=== PATIENT | male | born 1945 | race Caucasian/White ===

== ENCOUNTER 2022-01-27 11:57 | Inpatient (IN) ==
[2022-01-27 13:25] LABS: ABS Basophils 0.1 10^3/ul (0-0.2); ABS Lymphocytes 0.8 10^3/ul (1.0-4.8); ABS Monocytes 0.6 10^3/ul (0-0.8); ABS Neutrophils 12.9 10^3/ul (1.5-7.7); Eosinophil % 0.2 %; Hematocrit 25 % (42-52); Hemoglobin 8.7 g/dL (14.0-18.0); Lymphocyte % 5.5 %; Mean Corpuscular HGB Conc 34 g/dL (31-36); Mean Corpuscular Hemoglobin 31 pg (27-31); Mean Corpuscular Volume 89 fL (80-94); Mean Platelet Volume 6.5 fL (7.4-10.4); Platelet Count 213 10^3/uL (150-450); Red Blood Count 2.85 10^6 /uL (4.18-5.48); Red Cell Distribution Width 15 % (10-15); White Blood Count 14.4 10^3/uL (3.5-10.8)
[2022-01-27 13:42] LABS: ALT 153 U/L (7-52); AST 160 U/L (13-39); Albumin 3.3 g/dL (3.2-5.2); Albumin/Globulin Ratio 1.4 (1-3); Alkaline Phosphatase 73 U/L (35-149); Anion Gap 16 mmol/L (2-11); Blood Urea Nitrogen 117 mg/dL (6-24); CO2 Carbon Dioxide 19 mmol/L (22-32); Calcium 8.3 mg/dL (8.6-10.3); Chloride 93 mmol/L (101-111); Globulin 2.3 g/dL (2-4); Glucose 146 mg/dL (70-100); Lipase 48 U/L (11.0-82.0); Magnesium 2.6 mg/dL (1.9-2.7); Potassium 3.7 mmol/L (3.5-5.0); Sodium 128 mmol/L (135-145); Total Protein 5.6 g/dL (6.4-8.9); eGFR CKD-EPI 8.8 (>60)
[2022-01-27 13:43] LABS: High Sens Troponin Baseline 223 pg/mL (<20)
[2022-01-27 14:15] LABS: Creatine Kinase 6143 U/L (10-223)
[2022-01-27] MEDS ORDERED: Lactated Ringers 1000 ml BAG 1,000 ML IV ONE (14:27)
[2022-01-27 14:52] LABS: High Sensitivity Troponin 1 Hr 360 pg/mL (<20)
[2022-01-27] MEDS ORDERED: Lactated Ringers 1000 ml BAG 1,000 ML IV SCH (15:00)
[2022-01-27 15:15] LABS: PCO2 Arterial 29 mmHg (35-45); PO2 Arterial 100 mmHg (80-100)
[2022-01-27 15:20] LABS: Alcohol, S < 13 mg/dL (<13)
[2022-01-27 16:05] LABS: Urine Appearance Cloudy; Urine Bacteria 1+ (Absent); Urine Bilirubin Negative (Negative); Urine Blood 3+ (Negative); Urine Color Yellow; Urine Glucose Negative (Negative); Urine Ketones Negative (Negative); Urine Nitrite Negative (Negative); Urine Protein 1+(30 mg/dL) (Negative); Urine Red Blood Cell Trace(0-2/hpf) (Absent); Urine Urobilinogen Negative (Negative); Urine White Blood Cell Trace(0-5/hpf) (Absent); Urine Yeast Present (Absent)
[2022-01-27 16:05] LABS: Salicylate < 2.50 mg/dL (<30)
[2022-01-27] MEDS ORDERED: Ondansetron 4 mg VIAL 2 MG/ML 2 ml VIAL IV ONE (16:21)
[2022-01-27] MEDS ORDERED: Ondansetron 4 mg VIAL 2 MG/ML 2 ml VIAL IV PRN (16:21)
[2022-01-27] MEDS ORDERED: Ondansetron 4 mg VIAL 2 MG/ML 2 ml VIAL ONE (16:22)
[2022-01-27 17:23] LABS: CKMB ng/mL 150.8 ng/mL (0.6-6.3); Potassium 3.6 mmol/L (3.5-5.0); eGFR CKD-EPI 9.1 (>60)
[2022-01-27 17:29] LABS: ABS Lymphocytes 0.7 10^3/ul (1.0-4.8); ABS Monocytes 0.6 10^3/ul (0-0.8); ABS Neutrophils 11.1 10^3/ul (1.5-7.7); ABS Nucleated RBC 0.1 10^3/ul; Eosinophil % 0.1 %; Hematocrit 19 % (42-52); Hemoglobin 6.6 g/dL (14.0-18.0); Lymphocyte % 5.7 %; Mean Corpuscular HGB Conc 35 g/dL (31-36); Mean Corpuscular Hemoglobin 31 pg (27-31); Mean Corpuscular Volume 89 fL (80-94); Mean Platelet Volume 6.6 fL (7.4-10.4); Nucleated Red Blood Cells % 0.4; Platelet Count 165 10^3/uL (150-450); Red Blood Count 2.14 10^6 /uL (4.18-5.48); Red Cell Distribution Width 15 % (10-15); White Blood Count 12.5 10^3/uL (3.5-10.8)
[2022-01-27 17:51] LABS: Hepatitis A Ab IgM Negative (Negative)
[2022-01-27 17:52] LABS: Hepatitis B Core IgM Nonreactive (Nonreactive)
[2022-01-27] MEDS: cefTRIAXone 1 gm/50 mL D5W 1 GM/50 ML BAG IV SCH (17:59)
[2022-01-27 18:04] LABS: Hepatitis C Antibody Negative (Negative)
[2022-01-27 18:33] LABS: Hematocrit 20 % (42-52); Hemoglobin 7.1 g/dL (14.0-18.0)
[2022-01-27 19:48] LABS: Calcium 7.6 mg/dL (8.6-10.3); Potassium 3.4 mmol/L (3.5-5.0); eGFR CKD-EPI 9.3 (>60)
[2022-01-27] MEDS: Pantoprazole VIAL 40 MG VIAL IV SCH (20:28)
[2022-01-27] MEDS: Lactated Ringers 1000 ml BAG 1,000 ML IV SCH (20:30)
[2022-01-27 20:42] LABS: Hepatitis B Surface Antigen Nonreactive (Nonreactive)
[2022-01-28 00:18] LABS: Calcium 7.8 mg/dL (8.6-10.3); Potassium 3.6 mmol/L (3.5-5.0)
[2022-01-28 04:19] LABS: ABS Basophils 0.1 10^3/ul (0-0.2); ABS Eosinophils 0.1 10^3/ul (0-0.6); ABS Lymphocytes 1.1 10^3/ul (1.0-4.8); ABS Monocytes 0.4 10^3/ul (0-0.8); ABS Neutrophils 9.3 10^3/ul (1.5-7.7); Eosinophil % 0.8 %; Hematocrit 23 % (42-52); Hemoglobin 7.9 g/dL (14.0-18.0); Lymphocyte % 10.1 %; Mean Corpuscular HGB Conc 35 g/dL (31-36); Mean Corpuscular Hemoglobin 31 pg (27-31); Mean Corpuscular Volume 88 fL (80-94); Mean Platelet Volume 6.6 fL (7.4-10.4); Nucleated Red Blood Cells % 0.1; Platelet Count 164 10^3/uL (150-450); Red Blood Count 2.57 10^6 /uL (4.18-5.48); Red Cell Distribution Width 14 % (10-15); White Blood Count 10.9 10^3/uL (3.5-10.8)
[2022-01-28 04:22] LABS: INR 1.09 (0.86-1.15)
[2022-01-28] MEDS: Lactated Ringers 1000 ml BAG 1,000 ML IV SCH (04:46)
[2022-01-28 04:56] LABS: Albumin 2.5 g/dL (3.2-5.2); Albumin/Globulin Ratio 1.4 (1-3); Calcium 7.8 mg/dL (8.6-10.3); Globulin 1.8 g/dL (2-4); Potassium 3.5 mmol/L (3.5-5.0); Total Bilirubin 0.5 mg/dL (0.2-1.0); Total Protein 4.3 g/dL (6.4-8.9); eGFR CKD-EPI 9.1 (>60)
[2022-01-28] MEDS: Pantoprazole VIAL 40 MG VIAL IV SCH ×2 (10:39→21:11)
[2022-01-28] MEDS ORDERED: Perflutren Lipid Microsphere 3 ML VIAL ONE (11:01)
[2022-01-28] MEDS: cefTRIAXone 1 gm/50 mL D5W 1 GM/50 ML BAG IV SCH (17:43)
[2022-01-29 06:40] LABS: ABS Eosinophils 0.1 10^3/ul (0-0.6); ABS Lymphocytes 1.2 10^3/ul (1.0-4.8); ABS Monocytes 0.7 10^3/ul (0-0.8); ABS Neutrophils 8.2 10^3/ul (1.5-7.7); Eosinophil % 1.2 %; Hematocrit 25 % (42-52); Hemoglobin 8.6 g/dL (14.0-18.0); Lymphocyte % 11.5 %; Mean Corpuscular HGB Conc 35 g/dL (31-36); Mean Corpuscular Hemoglobin 31 pg (27-31); Mean Corpuscular Volume 89 fL (80-94); Mean Platelet Volume 6.4 fL (7.4-10.4); Platelet Count 157 10^3/uL (150-450); Red Blood Count 2.77 10^6 /uL (4.18-5.48); Red Cell Distribution Width 15 % (10-15); White Blood Count 10.2 10^3/uL (3.5-10.8)
[2022-01-29 07:00] LABS: Albumin 2.8 g/dL (3.2-5.2); Albumin/Globulin Ratio 1.3 (1-3); Calcium 8.3 mg/dL (8.6-10.3); Globulin 2.2 g/dL (2-4); Magnesium 2.3 mg/dL (1.9-2.7); Phosphorus 6.9 mg/dL (2.5-5.0); Potassium 3.9 mmol/L (3.5-5.0); Total Bilirubin 0.5 mg/dL (0.2-1.0); eGFR CKD-EPI 8.5 (>60)
[2022-01-29] MEDS ORDERED: NS 0.9% 1000 ml BAG 1,000 ML IV SCH (08:00)
[2022-01-29 09:55] LABS: UR Microalbumin (mg/L) 22.2 mg/L; Urine Creatinine 25.88 mg/dL; Urine Creatinine Concentration 25.88 mg/dL; Urine Microalbumin/Creatinine 85.7 (<31)
[2022-01-29] MEDS: Pantoprazole VIAL 40 MG VIAL IV SCH ×2 (10:31→20:48)
[2022-01-29] MEDS ORDERED: Regadenoson 0.4 MG/5 ML SYRINGE ONE (14:50)
[2022-01-29] MEDS ORDERED: Ondansetron 4 mg VIAL 2 MG/ML 2 ml VIAL ONE (15:09)
[2022-01-29 17:39] LABS: Ferritin 76.5 ng/mL (24-336)
[2022-01-29 17:58] LABS: C Reactive Protein 24.92 mg/L (<8.01)
[2022-01-29] MEDS ORDERED: Sodium Bicarb 8.4% Vial 50 ML 150 MEQ in D5W 1000 ml BAG 1,000 ML IV SCH (18:00)
[2022-01-29] MEDS ORDERED: Sodium Bicarbonate 8.4% SYR 50 ml SYRINGE IV ONE (18:00)
[2022-01-29 18:38] LABS: UR Microalbumin (mg/L) 19.1 mg/L; Urine Creatinine 24.1 mg/dL; Urine Microalbumin/Creatinine 79.2 (<31)
[2022-01-30 06:05] LABS: Hematocrit 23 % (42-52); Hemoglobin 8.2 g/dL (14.0-18.0); Mean Corpuscular HGB Conc 35 g/dL (31-36); Mean Corpuscular Hemoglobin 31 pg (27-31); Mean Corpuscular Volume 88 fL (80-94); Mean Platelet Volume 6.6 fL (7.4-10.4); Platelet Count 170 10^3/uL (150-450); Red Blood Count 2.65 10^6 /uL (4.18-5.48); Red Cell Distribution Width 15 % (10-15); White Blood Count 11.6 10^3/uL (3.5-10.8)
[2022-01-30 06:40] LABS: Albumin 2.5 g/dL (3.2-5.2); Albumin/Globulin Ratio 1.1 (1-3); Calcium 8.3 mg/dL (8.6-10.3); Globulin 2.3 g/dL (2-4); Magnesium 2.3 mg/dL (1.9-2.7); Potassium 3.7 mmol/L (3.5-5.0); Total Bilirubin 0.4 mg/dL (0.2-1.0); Total Protein 4.8 g/dL (6.4-8.9); eGFR CKD-EPI 8.1 (>60)
[2022-01-30] MEDS ORDERED: NS 0.9% 1000 ml BAG 1,000 ML IV SCH (07:30)
[2022-01-30] MEDS: Pantoprazole VIAL 40 MG VIAL IV SCH ×2 (08:28→20:40)
[2022-01-30] MEDS ORDERED: Clindamycin 600 MG/D5W BAG 600 MG/50 ML BAG IV ONE (10:30)
[2022-01-30 10:43] LABS: Kappa Free Light Chain 10.7 mg/dL; Lambda Free Light Chain, S 6.78 mg/dL
[2022-01-30] MEDS ORDERED: Lidocaine 1% VIAL 10 MG/ML VIAL ONE (11:00)
[2022-01-30] MEDS ORDERED: Iohexol 350 (CONTRAST) 200 ML MDV IV ONE (11:00)
[2022-01-30] MEDS ORDERED: Heparin 2 UNITS/ML IVPREMIX 2,000 UNIT/1,000 ML BAG IV ONE (11:00)
[2022-01-30] MEDS ORDERED: Iodixanol 320 (CONTRAST) 100 ML SDV ONE (11:01)
[2022-01-30] MEDS ORDERED: NS 0.9% 1000 ml BAG 100 ML IV PRN (11:02)
[2022-01-30] MEDS ORDERED: NS 0.9% 1000 ml BAG 200 ML IV PRN (11:02)
[2022-01-30] MEDS ORDERED: Albumin Human 25% 25 GM/100 ML BTL IV PRN (11:02)
[2022-01-30] MEDS ORDERED: Midazolam 5 mg/5 ml VIAL 1 mg/ml 5 ml VIAL (5 mg) ONE (11:36)
[2022-01-30] MEDS ORDERED: fentaNYL 100 mcg/2 ml 50 MCG/ML VIAL ONE (11:36)
[2022-01-30 13:21] LABS: Hepatitis B Surface Antigen Nonreactive (Nonreactive)
[2022-01-30] MEDS: Heparin 1,000 UNIT/ML 10 ml (10,000 UNITS) CATHLAB/DIALYSIS DIALYSIS SCH (15:10)
[2022-01-30] MEDS ORDERED: Sodium Bicarb 8.4% Vial 50 ML 150 MEQ in D5W 1000 ml BAG 850 ML IV SCH (18:00)
[2022-01-30 18:29] LABS: Albumin 2.1 g/dL (3.4-4.7); Albumin/Globulin Ratio 0.76; Gamma Globulin 0.5 g/dL (0.6-1.6); Total Protein(PEP) 4.9 g/dL (6.3 - 7.9)
[2022-01-30 20:19] LABS: Hepatitis B Surface Antigen Nonreactive (Nonreactive)
[2022-01-31 06:53] LABS: Hematocrit 20 % (42-52); Hemoglobin 7.2 g/dL (14.0-18.0); Mean Corpuscular HGB Conc 36 g/dL (31-36); Mean Corpuscular Hemoglobin 31 pg (27-31); Mean Corpuscular Volume 88 fL (80-94); Mean Platelet Volume 6.8 fL (7.4-10.4); Platelet Count 154 10^3/uL (150-450); Red Cell Distribution Width 15 % (10-15); White Blood Count 9.2 10^3/uL (3.5-10.8)
[2022-01-31 07:11] LABS: Magnesium 2.1 mg/dL (1.9-2.7); Potassium 3.1 mmol/L (3.5-5.0); eGFR CKD-EPI 7.7 (>60)
[2022-01-31] MEDS ORDERED: Potassium Chlor 20 meq TAB.ER PO ONE (07:22)
[2022-01-31 07:50] LABS: Albumin 2.3 g/dL (3.2-5.2); Albumin/Globulin Ratio 1.2 (1-3); Direct Bilirubin 0.1 mg/dL (0.03-0.18); Indirect Bilirubin 0.3 mg/dL (0.3-1.0); Total Bilirubin 0.4 mg/dL (0.2-1.0); Total Protein 4.3 g/dL (6.4-8.9)
[2022-01-31] MEDS: Heparin 1,000 UNIT/ML 10 ml (10,000 UNITS) CATHLAB/DIALYSIS DIALYSIS SCH (10:32)
[2022-01-31] MEDS: Pantoprazole VIAL 40 MG VIAL IV SCH ×2 (10:40→20:48)
[2022-01-31 11:59] LABS: C Reactive Protein 12.51 mg/L (<8.01); Rheumatoid Factor < 10 IU/mL (<15)
[2022-01-31 12:50] LABS: Hepatitis B Surface Ab Not Immune (Immune); Hepatitis C Antibody Negative (Negative)
[2022-01-31 12:55] LABS: HIV 4th Generation Nonreactive (Nonreactive)
[2022-01-31 16:34] LABS: UR Microalbumin (mg/L) 15.6 mg/L; Urine Creatinine 37.6 mg/dL; Urine Creatinine Concentration 37.6 mg/dL; Urine Microalbumin/Creatinine 41.4 (<31)
[2022-02-01 06:38] LABS: Hematocrit 22 % (42-52); Hemoglobin 7.6 g/dL (14.0-18.0); Mean Corpuscular HGB Conc 35 g/dL (31-36); Mean Corpuscular Hemoglobin 31 pg (27-31); Mean Corpuscular Volume 89 fL (80-94); Mean Platelet Volume 6.9 fL (7.4-10.4); Platelet Count 164 10^3/uL (150-450); Red Blood Count 2.41 10^6 /uL (4.18-5.48); Red Cell Distribution Width 15 % (10-15); White Blood Count 9.8 10^3/uL (3.5-10.8)
[2022-02-01 07:00] LABS: Calcium 8.7 mg/dL (8.6-10.3); Potassium 3.5 mmol/L (3.5-5.0); eGFR CKD-EPI 8.2 (>60)
[2022-02-01] MEDS ORDERED: Lidocaine 1% MPF 5 ML VIAL ONE (08:56)
[2022-02-01] MEDS ORDERED: Heparin 2 UNITS/ML 1000 mls 1,000 ML IV ONE (08:56)
[2022-02-01] MEDS ORDERED: Clindamycin 600 MG/D5W BAG 600 MG/50 ML BAG IV ONE (09:00)
[2022-02-01] MEDS ORDERED: Midazolam 5 mg/5 ml VIAL 1 mg/ml 5 ml VIAL (5 mg) ONE (09:00)
[2022-02-01] MEDS ORDERED: fentaNYL 100 mcg/2 ml 50 MCG/ML VIAL ONE ×2 (09:00→09:32)
[2022-02-01] MEDS ORDERED: Heparin 1,000 UNIT/ML 10 ml (10,000 UNITS) CATHLAB/DIALYSIS ONE (09:09)
[2022-02-01] MEDS: Heparin 1,000 UNIT/ML 10 ml (10,000 UNITS) CATHLAB/DIALYSIS DIALYSIS SCH ×3 (11:11→13:15)
[2022-02-01] MEDS: Pantoprazole VIAL 40 MG VIAL IV SCH ×2 (12:11→20:21)
[2022-02-01 15:29] LABS: Myeloperoxidase Antibody <0.2 U
[2022-02-01 15:58] LABS: Complement C3 122 mg/dL (75 - 175)
[2022-02-01 16:18] LABS: Kappa Free Light Chain 8.69 mg/dL; Lambda Free Light Chain, S 5.35 mg/dL
[2022-02-02] MEDS ORDERED: NS 0.9% 500 ml BAG 500 ML IV ONE ×2 (00:34→12:23)
[2022-02-02 07:20] LABS: Hematocrit 19 % (42-52); Hemoglobin 6.5 g/dL (14.0-18.0); Mean Corpuscular HGB Conc 35 g/dL (31-36); Mean Corpuscular Hemoglobin 32 pg (27-31); Mean Corpuscular Volume 91 fL (80-94); Mean Platelet Volume 6.9 fL (7.4-10.4); Platelet Count 157 10^3/uL (150-450); Red Blood Count 2.06 10^6 /uL (4.18-5.48); Red Cell Distribution Width 15 % (10-15); White Blood Count 9.6 10^3/uL (3.5-10.8)
[2022-02-02 07:22] LABS: Calcium 8.2 mg/dL (8.6-10.3); Potassium 3.3 mmol/L (3.5-5.0); eGFR CKD-EPI 12.4 (>60)
[2022-02-02 08:09] LABS: Magnesium 1.8 mg/dL (1.9-2.7)
[2022-02-02] MEDS: Heparin 1,000 UNIT/ML 10 ml (10,000 UNITS) CATHLAB/DIALYSIS DIALYSIS SCH ×2 (08:30→11:20)
[2022-02-02] MEDS ORDERED: Magnesium Sulfate 2 gm BAG 2 GM/50 ML BAG IVPB ONE (09:00)
[2022-02-02 12:28] LABS: Cryoglobulin Negative %ppt (Negative)
[2022-02-02 12:30] LABS: Albumin/Globulin Ratio 0.82; Gamma Globulin 0.5 g/dL (0.6-1.6); Total Protein(PEP) 4.5 g/dL (6.3 - 7.9)
[2022-02-02 12:30] LABS: C-ANCA Negative (Negative); P-ANCA Negative (Negative)
[2022-02-02] MEDS: Pantoprazole VIAL 40 MG VIAL IV SCH (13:10)
[2022-02-02] MEDS ORDERED: NS 0.9% 1000 ml BAG 1,000 ML IV ONE (14:10)
[2022-02-02] MEDS ORDERED: fentaNYL 100 mcg/2 ml 50 MCG/ML VIAL ONE (14:45)
[2022-02-02] MEDS ORDERED: Midazolam 10 mg/10 ml VIAL 1 mg/ml 10 ml VIAL (10 mg) ONE (14:45)
[2022-02-02 15:02] LABS: Phospholipase A2 Receptor IFA Negative (Negative); Phospholipase A2 ReceptorELISA <2 RU/mL
[2022-02-02 17:52] LABS: Hematocrit 23 % (42-52); Hemoglobin 7.9 g/dL (14.0-18.0)
[2022-02-02] MEDS: NS 0.9% 1000 ml BAG 1,000 ML IV SCH (20:26)
[2022-02-03] MEDS: NS 0.9% 1000 ml BAG 1,000 ML IV SCH (06:24)
[2022-02-03 07:01] LABS: Hematocrit 22 % (42-52); Hemoglobin 7.7 g/dL (14.0-18.0); Mean Corpuscular HGB Conc 34 g/dL (31-36); Mean Corpuscular Hemoglobin 31 pg (27-31); Mean Corpuscular Volume 92 fL (80-94); Platelet Count 169 10^3/uL (150-450); Red Blood Count 2.44 10^6 /uL (4.18-5.48); Red Cell Distribution Width 14 % (10-15); White Blood Count 10.3 10^3/uL (3.5-10.8)
[2022-02-03 07:37] LABS: Calcium 8.2 mg/dL (8.6-10.3); Magnesium 1.6 mg/dL (1.9-2.7); Potassium 3.3 mmol/L (3.5-5.0)
[2022-02-03] MEDS ORDERED: Potassium Chloride LIQUID 20 MEQ/15 ML LIQUID PO ONE (09:15)
[2022-02-03] MEDS ORDERED: Magnesium Sulf 4 GM/100 ML IV 4,000 MG/100 ML BAG IVPB ONE (10:30)
[2022-02-03] MEDS: Fluticasone NASAL SPRAY 50MCG 16 gm SPRAY BTL BOTH NARES SCH (13:42)
[2022-02-04 06:53] LABS: Hematocrit 20 % (42-52); Hemoglobin 6.8 g/dL (14.0-18.0); Mean Corpuscular HGB Conc 35 g/dL (31-36); Mean Corpuscular Hemoglobin 32 pg (27-31); Mean Corpuscular Volume 92 fL (80-94); Mean Platelet Volume 7.2 fL (7.4-10.4); Platelet Count 161 10^3/uL (150-450); Red Blood Count 2.12 10^6 /uL (4.18-5.48); Red Cell Distribution Width 15 % (10-15); White Blood Count 10.5 10^3/uL (3.5-10.8)
[2022-02-04 07:00] LABS: ABS Basophils 0.1 10^3/ul (0-0.2); ABS Eosinophils 0.2 10^3/ul (0-0.6); ABS Lymphocytes 1.4 10^3/ul (1.0-4.8); ABS Monocytes 0.5 10^3/ul (0-0.8); ABS Neutrophils 8.2 10^3/ul (1.5-7.7); Eosinophil % 2.3 %; Lymphocyte % 13.5 %
[2022-02-04 07:25] LABS: Albumin 2.4 g/dL (3.2-5.2); Albumin/Globulin Ratio 1.3 (1-3); Calcium 8.3 mg/dL (8.6-10.3); Globulin 1.8 g/dL (2-4); Magnesium 2.6 mg/dL (1.9-2.7); Potassium 3.2 mmol/L (3.5-5.0); Total Bilirubin 0.4 mg/dL (0.2-1.0); Total Protein 4.2 g/dL (6.4-8.9); eGFR CKD-EPI 18.2 (>60)
[2022-02-04] MEDS: Fluticasone NASAL SPRAY 50MCG 16 gm SPRAY BTL BOTH NARES SCH (07:42)
[2022-02-04] MEDS ORDERED: Potassium Chlor 20 meq TAB.ER PO ONE (08:01)
[2022-02-04 12:02] LABS: Hematocrit 20 % (42-52)
[2022-02-04] MEDS ORDERED: Magnesium Hydroxide LIQ 30 ML UDC PO PRN (17:30)
[2022-02-04 19:51] LABS: High Sensitivity Troponin 1 Hr 300 pg/mL (<20)
[2022-02-05 05:56] LABS: Hematocrit 20 % (42-52); Hemoglobin 6.7 g/dL (14.0-18.0); Mean Corpuscular HGB Conc 34 g/dL (31-36); Mean Corpuscular Hemoglobin 32 pg (27-31); Mean Corpuscular Volume 93 fL (80-94); Mean Platelet Volume 7.2 fL (7.4-10.4); Platelet Count 180 10^3/uL (150-450); Red Blood Count 2.11 10^6 /uL (4.18-5.48); Red Cell Distribution Width 15 % (10-15); White Blood Count 10.6 10^3/uL (3.5-10.8)
[2022-02-05 06:28] LABS: Calcium 8.3 mg/dL (8.6-10.3); Magnesium 2.4 mg/dL (1.9-2.7); Potassium 3.6 mmol/L (3.5-5.0); eGFR CKD-EPI 16.8 (>60)
[2022-02-05] MEDS ORDERED: PEG 3000 GI LAVAGE 1 GALLON PO ONE (08:41)
[2022-02-05] MEDS: Fluticasone NASAL SPRAY 50MCG 16 gm SPRAY BTL BOTH NARES SCH (10:11)
[2022-02-06 00:36] LABS: ABS Basophils 0.1 10^3/ul (0-0.2); ABS Eosinophils 0.2 10^3/ul (0-0.6); ABS Lymphocytes 1.6 10^3/ul (1.0-4.8); ABS Monocytes 0.7 10^3/ul (0-0.8); ABS Neutrophils 9.6 10^3/ul (1.5-7.7); Eosinophil % 1.5 %; Hematocrit 26 % (42-52); Lymphocyte % 13.3 %; Mean Corpuscular HGB Conc 35 g/dL (31-36); Mean Corpuscular Hemoglobin 32 pg (27-31); Mean Corpuscular Volume 91 fL (80-94); Mean Platelet Volume 7.4 fL (7.4-10.4); Platelet Count 185 10^3/uL (150-450); Red Blood Count 2.85 10^6 /uL (4.18-5.48); Red Cell Distribution Width 15 % (10-15); White Blood Count 12.2 10^3/uL (3.5-10.8)
[2022-02-06 07:15] LABS: Hematocrit 26 % (42-52); Hemoglobin 9.1 g/dL (14.0-18.0); Mean Corpuscular HGB Conc 35 g/dL (31-36); Mean Corpuscular Hemoglobin 32 pg (27-31); Mean Corpuscular Volume 92 fL (80-94); Mean Platelet Volume 7.2 fL (7.4-10.4); Platelet Count 179 10^3/uL (150-450); Red Blood Count 2.85 10^6 /uL (4.18-5.48); Red Cell Distribution Width 15 % (10-15)
[2022-02-06 07:59] LABS: Calcium 8.4 mg/dL (8.6-10.3); Magnesium 2.1 mg/dL (1.9-2.7); Potassium 3.4 mmol/L (3.5-5.0); eGFR CKD-EPI 18.1 (>60)
[2022-02-06] MEDS ORDERED: Potassium Chlor 20 meq TAB.ER PO ONE (08:09)
[2022-02-06] MEDS ORDERED: fentaNYL 100 mcg/2 ml 50 MCG/ML VIAL ONE (15:02)
[2022-02-06] MEDS ORDERED: Midazolam 10 mg/10 ml VIAL 1 mg/ml 10 ml VIAL (10 mg) ONE (15:02)
[2022-02-06] MEDS: Fluticasone NASAL SPRAY 50MCG 16 gm SPRAY BTL BOTH NARES SCH (16:22)
[2022-02-07 05:39] LABS: Hematocrit 24 % (42-52); Hemoglobin 8.4 g/dL (14.0-18.0); Mean Corpuscular HGB Conc 35 g/dL (31-36); Mean Corpuscular Hemoglobin 32 pg (27-31); Mean Corpuscular Volume 91 fL (80-94); Platelet Count 168 10^3/uL (150-450); Red Blood Count 2.63 10^6 /uL (4.18-5.48); Red Cell Distribution Width 15 % (10-15); White Blood Count 8.4 10^3/uL (3.5-10.8)
[2022-02-07 06:27] LABS: Calcium 8.3 mg/dL (8.6-10.3); Potassium 3.4 mmol/L (3.5-5.0); eGFR CKD-EPI 18.3 (>60)
[2022-02-07] MEDS ORDERED: Potassium Chlor 20 meq TAB.ER PO ONE ×2 (06:44→23:29)
[2022-02-07] MEDS: Fluticasone NASAL SPRAY 50MCG 16 gm SPRAY BTL BOTH NARES SCH (11:27)
[2022-02-08 06:48] LABS: Hematocrit 24 % (42-52); Hemoglobin 8.1 g/dL (14.0-18.0); Mean Corpuscular HGB Conc 34 g/dL (31-36); Mean Corpuscular Hemoglobin 32 pg (27-31); Mean Corpuscular Volume 92 fL (80-94); Mean Platelet Volume 7.4 fL (7.4-10.4); Platelet Count 176 10^3/uL (150-450); Red Blood Count 2.56 10^6 /uL (4.18-5.48); Red Cell Distribution Width 15 % (10-15); White Blood Count 7.7 10^3/uL (3.5-10.8)
[2022-02-08 07:09] LABS: Calcium 8.3 mg/dL (8.6-10.3); Magnesium 1.6 mg/dL (1.9-2.7); Potassium 3.2 mmol/L (3.5-5.0); eGFR CKD-EPI 18.9 (>60)
[2022-02-08] MEDS ORDERED: Potassium Chlor 20 meq TAB.ER PO ONE (07:13)
[2022-02-08] MEDS ORDERED: Magnesium Sulf 4 GM/100 ML IV 4,000 MG/100 ML BAG IVPB ONE (07:14)
[2022-02-08] MEDS: Fluticasone NASAL SPRAY 50MCG 16 gm SPRAY BTL BOTH NARES SCH (10:58)
[2022-02-09 07:30] LABS: Hematocrit 25 % (42-52); Hemoglobin 8.7 g/dL (14.0-18.0); Mean Corpuscular HGB Conc 34 g/dL (31-36); Mean Corpuscular Hemoglobin 32 pg (27-31); Mean Corpuscular Volume 93 fL (80-94); Platelet Count 203 10^3/uL (150-450); Red Blood Count 2.74 10^6 /uL (4.18-5.48); Red Cell Distribution Width 16 % (10-15); White Blood Count 7.6 10^3/uL (3.5-10.8)
[2022-02-09 08:27] LABS: Calcium 8.5 mg/dL (8.6-10.3); Magnesium 2.4 mg/dL (1.9-2.7); Potassium 3.9 mmol/L (3.5-5.0); eGFR CKD-EPI 19.6 (>60)
[2022-02-09] MEDS: Fluticasone NASAL SPRAY 50MCG 16 gm SPRAY BTL BOTH NARES SCH (09:41)
[2022-02-09 11:16] VITALS: BP 115/70
== END 2022-02-09 16:05 | disposition home or self-care (01) | DRG 674 ==
LOC: ED 11:57 → SUATTDRO 16:06 → EDHOLD 16:06 → MEDTELE 20:23 → MED 02-05 22:08
PROVIDERS: ADMIT Internal Medicine; ATTEND Internal Medicine